=== PATIENT | female | born 1935 | race Asian ===

== ENCOUNTER 2018-12-19 07:05 | Inpatient (IN) | payer OTHER ==
--- NOTE | 2018-12-19 07:00 | EDPHY ---
H & P Time Seen by Provider: 12/19/18 07:05 Constitutional: Initial Vital Signs Temperature (C) 36.6 C 12/19/18 07:30 Heart Rate 84 12/19/18 07:30 Respiratory Rate 18 12/19/18 07:30 Blood Pressure 141/58 H 12/19/18 07:30 O2 Sat (%) 99 12/19/18 07:30 O2 Delivery Mode Room Air Allergies/Adverse Reactions: No Known Allergies Allergy (Unverified 12/19/18 07:39) Home Medications: Medication Instructions Recorded Glipizide 12/19/18 Medical Decision Making - Diagnostics Imaging Results: Imaging Impressions Head CT 12/19/18 07:12 Impression: 1. Possible acute/subacute ischemia left temporal lobe as described, MRI is recommended for further evaluation. Final results are concordant with initial interpretation. Preliminary report was communicated to the referring provider at 7:43 AM. AVI. Head CTA 12/19/18 07:12 Impression: 1. There is no hemodynamically significant ICA stenosis. 2. Patent vertebral arteries. CT ANGIOGRAPHY OF THE BRAIN: Study is limited by venous contamination. The major vessels of the hoh of [place] are well visualized, and there is no aneurysm, vascular malformation, flow-limiting stenosis, or acute occlusion identified. Calcified atherosclerotic plaque is seen in the internal carotid arteries without high-grade stenosis or occlusion. The distal cervical, petrous , cavernous, and supraclinoid portions of the internal carotid arteries are patent. Anterior and middle cerebral arteries are widely patent. Hypoplastic right A1 segment. With regards to the posterior circulation, the distal vertebral arteries are patent. The there is origin of the right CONDITIONING ROOM WORKER. The vertebrobasilar confluence and Posterior cerebral arteries are patent. Impression: Negative CT angiogram of the brain. With high clinical suspicion for acute ischemia, MRI is recommended for further evaluation. Please see separately dictated CT head for further findings. Final results are concordant with initial interpretation. Preliminary report was communicated to the referring provider at 7:51 AM. 1. Neck CTA 12/19/18 07:12 Impression: 1. There is no hemodynamically significant ICA stenosis. 2. Patent vertebral arteries. CT ANGIOGRAPHY OF THE BRAIN: Study is limited by venous contamination. The major vessels of the hoh of [place] are well visualized, and there is no aneurysm, vascular malformation, flow-limiting stenosis, or acute occlusion identified. Calcified atherosclerotic plaque is seen in the internal carotid arteries without high-grade stenosis or occlusion. The distal cervical, petrous , cavernous, and supraclinoid portions of the internal carotid arteries are patent. Anterior and middle cerebral arteries are widely patent. Hypoplastic right A1 segment. With regards to the posterior circulation, the distal vertebral arteries are patent. The there is origin of the right CONDITIONING ROOM WORKER. The vertebrobasilar confluence and Posterior cerebral arteries are patent. Impression: Negative CT angiogram of the brain. With high clinical suspicion for acute ischemia, MRI is recommended for further evaluation. Please see separately dictated CT head for further findings. Final results are concordant with initial interpretation. Preliminary report was communicated to the referring provider at 7:51 AM. 1. Imaging: Discussed imaging studies w/ call out operator Radiologist, I viewed and interpreted images myself ED Course/Re-evaluation: CHIEF COMPLAINT: Stroke alert HISTORY OF PRESENT ILLNESS: The patient is an 83 y/o female arriving via EMS as a stroke alert. Per EMS, the patient was last seen normal at 22:00, 9 hours ago. When the patient woke up this morning at 06:30, her noted that the patient was unable to speak , which is not normal. The patient was able to walk out to the ambulance. While en route to the emergency department she was hypertensive with a BP of 200/100 as well as a HR of 100 and BGL of 233. REVIEW OF SYSTEMS: Unable to obtain secondary to patient's mental status PHYSICAL EXAM: HR, BP, O2 Sat, RR. Temp noted General Appearance: Alert, well hydrated, appropriate, and non-toxic appearing. Head: Atraumatic without scalp tenderness or obvious injury Eyes: Pupils equal, round, reactive to light and accommodation, EOMI, no trauma , no injection. Ears: Clear bilaterally, no perforation, normal landmarks Nose: Atraumatic, no rhinorrhea, clear. Throat: There is no erythema or exudates, no lesions, normal tonsils, mucus membranes moist. Neck: Supple, 2+ carotid upstroke, nontender, no lymphadenopathy. Respiratory: No retractions, no distress, no wheezes, and no accessory muscle use. Lungs are clear to auscultation bilaterally. Cardiovascular: Regular rate and rhythm, no murmurs, rubs, or gallops. Bilateral carotid, radial, dorsalis pedis, and posterior tibial pulses intact. Good capillary refill all extremities. Gastrointestinal: Abdomen is soft, nontender, non-distended, no masses, no rebound, no guarding, no peritoneal signs. Musculoskeletal: Normal active ROM of all extremities, atraumatic. Neurological: Patient has Broca's aphasia and is not talking. The patient has non-focal cranial nerves, motor, sensory, and cerebellar exam. Skin: No rashes, good turgor, no nodules on palpation. Past medical history: Unknown Past surgical history: Unknown Family history: Unknown Social history: , lives in [place], retired DIAGNOSTICS/PROCEDURES/CRITICAL CARE TIME: EKG: The 12 lead EKG was interpreted by myself as sinus rhythm with a rate of 83 , minimal ST depression, prolonged QT interval. See hard copy and/or "tracemaster" electronic copy for interpretation. 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 Head CTA: No acute findings. Neck CTA: No acute findings. Brain MRI: Infarct in Broca's area. DIFFERENTIAL DIAGNOSIS: The differential diagnosis for the patient's altered mental status included but was not limited to Broca's area infarct, Broca's aphasia, hypoglycemia, infectious process, electrolyte abnormality, head injury, neurologic process, anemia, cardiac process, and intoxicants. MEDICAL DECISION MAKING: The patient is an 83 y/o female arriving via EMS as a stroke alert as she was unable to talk this morning. She was last seen normal at 22:00, 9 hours ago. She is able to walk without difficult. On exam the patient has no peripheral or cerebellar findings. She does have Broca's aphasia and is not talking at all. She is not a TPA candidate as she is out of the TPA time frame. I suspect she is having a large vessel occlusion. Labs, EKG, head CT, head and neck CTA ordered. Patient will be sent directly to CT. 0705: I met EMS upon arrival. 0730: I viewed patient's imaging findings, which have no acute findings. Radiologist reading still pending. 0731: Patient is back from CT; [facility] has been paged. 0732: I interpreted patient's EKG as sinus rhythm with a rate of 83, minimal ST depression, prolonged QT interval. 0734: I consulted with Dr. Garcia, neurologist, from [facility] regarding this patient. She agrees that unless there are findings on the CTA's there are no additional interventions to perform. 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 0747: I consulted with Dr. Garcia regarding patient's exam and head CT findings. Upon re-examination she is making more noises than before and is able to write words. If the patient's vessels are occluded, we will send her to [facility]. If there is no occlusion, the patient will be admitted here. Her BP is 141/58; 324mg PO Aspirin and 500cc Bolus of IV NS. Brain MRI ordered. 0743: I spoke with Dr. Mary, radiologist from [facility], regarding patient's CT and CTA findings. There are no acute findings besides the congenital anomaly. 0815: Patient had difficulty taking the Aspirin; she will need a swallow study. 0816: I consulted with the hospitalist service, Dr. Garcia accepts admission of this patient. The swallow study will be performed upon admission. 0827: I consulted with Dr. Villalta, neurologist, regarding patient and plan for admission. He agrees to follow this patient during her admission. 0949: I spoke with Dr. Mcgovern, radiologist, who reports that the patient has an infarct in Broca's area. Patient is safe to be transported to the floor. - Data Points Laboratory Results: Laboratory Results 12/19/18 07:06 12/19/18 07:06 12/19/18 12/19/18 12/19/18 07:17 07:14 07:06 WBC RBC Hgb POC Hgb 13.6 gm/dL gm/dL (12.6-16.3) Hct POC Hct 40 % % (38-47) MCV MCH MCHC RDW Plt Count MPV Neut % (Auto) Lymph % (Auto) Merrick % (Auto) Eos % (Auto) Baso % (Auto) Nucleat RBC Rel Count Absolute Neuts (auto) Absolute Lymphs (auto) Absolute Monos (auto) Absolute Eos (auto) Absolute Basos (auto) Absolute Nucleated RBC Immature Gran % Immature Gran # PT INR APTT POC Sodium 137 mEq/L mEq/L (135-145) Sodium 135 mEq/L mEq/L (135-145) POC Potassium 3.0 mEq/L L mEq/L (3.3-5.0) Potassium 3.1 mEq/L L mEq/L (3.5-5.2) POC Chloride 99 mEq/L mEq/L (97-110) Chloride 99 mEq/L mEq/L (97-110) Carbon Dioxide 23 mEq/l mEq/l (22-31) POC Total CO2 23 mEq/L mEq/L (22-31) Anion Gap 13 mEq/L mEq/L (6-14) POC BUN 12 mg/dL mg/dL (7-23) BUN 14 mg/dL mg/dL (7-23) Creatinine 0.6 mg/dL mg/dL (0.6-1.0) POC Creatinine 0.5 mg/dL L mg/dL (0.6-1.0) Estimated GFR > 60 Glucose 204 mg/dL H mg/dL (70-100) POC Glucose 214 mg/dL H mg/dL (70-100) Calcium 8.8 mg/dL mg/dL (8.5-10.4) POC Troponin I 0.00 ng/mL ng/mL (0.00-0.08) 12/19/18 12/19/18 07:06 07:06 WBC 6.50 10^3/uL 10^3/uL (3.80-9.50) RBC 4.81 10^6/uL 10^6/uL (4.18-5.33) Hgb 11.8 g/dL L g/dL (12.6-16.3) POC Hgb Hct 38.5 % % (38.0-47.0) POC Hct MCV 80.0 fL L fL (81.5-99.8) MCH 24.5 pg L pg (27.9-34.1) MCHC 30.6 g/dL L g/dL (32.4-36.7) RDW 17.5 % H % (11.5-15.2) Plt Count 296 10^3/uL 10^3/uL (150-400) MPV 8.8 fL fL (8.7-11.7) Neut % (Auto) 36.4 % L % (39.3-74.2) Lymph % (Auto) 50.9 % H % (15.0-45.0) Merrick % (Auto) 10.6 % % (4.5-13.0) Eos % (Auto) 1.4 % % (0.6-7.6) Baso % (Auto) 0.5 % % (0.3-1.7) Nucleat RBC Rel Count 0.0 % % (0.0-0.2) Absolute Neuts (auto) 2.37 10^3/uL 10^3/uL (1.70-6.50) Absolute Lymphs (auto) 3.31 10^3/uL H 10^3/uL (1.00-3.00) Absolute Monos (auto) 0.69 10^3/uL 10^3/uL (0.30-0.80) Absolute Eos (auto) 0.09 10^3/uL 10^3/uL (0.03-0.40) Absolute Basos (auto) 0.03 10^3/uL 10^3/uL (0.02-0.10) Absolute Nucleated RBC 0.00 10^3/uL 10^3/uL (0-0.01) Immature Gran % 0.2 % % (0.0-1.1) Immature Gran # 0.01 10^3/uL 10^3/uL (0.00-0.10) PT 11.7 SEC L SEC (12.0-15.0) INR 0.89 (0.83-1.16) APTT 27.1 SEC SEC (23.0-38.0) POC Sodium Sodium POC Potassium Potassium POC Chloride Chloride Carbon Dioxide POC Total CO2 Anion Gap POC BUN BUN Creatinine POC Creatinine Estimated GFR Glucose POC Glucose Calcium POC Troponin I Medications Given: Discontinued Medications Aspirin (Aspirin) 324 mg PO EDNOW ONE Stop: 12/19/18 07:51 Last Admin: 12/19/18 07:53 Dose: 324 mg Sodium Chloride (Ns) 1,000 mls @ 0 mls/hr IV EDNOW ONE; Wide Open PRN Reason: Protocol Stop: 12/19/18 07:50 Last Admin: 12/19/18 07:57 Dose: 1,000 mls Point of Care Test Results: Chemistry 12/19/18 12/19/18 07:17 07:14 POC Sodium 137 mEq/L mEq/L (135-145) POC Potassium 3.0 mEq/L L mEq/L (3.3-5.0) POC Chloride 99 mEq/L mEq/L (97-110) POC Total CO2 23 mEq/L mEq/L (22-31) POC BUN 12 mg/dL mg/dL (7-23) POC Creatinine 0.5 mg/dL L mg/dL (0.6-1.0) POC Glucose 214 mg/dL H mg/dL (70-100) POC Troponin I 0.00 ng/mL ng/mL (0.00-0.08) ISTAT H&H 12/19/18 07:14 POC Hgb 13.6 gm/dL gm/dL (12.6-16.3) POC Hct 40 % % (38-47) Departure - Departure Disposition: [facility] Inpatient Acute Clinical Impression: Acute ischemic stroke, Broca's aphasia, Broca's area infarct Condition: Fair Referrals: Patient,NotPresent [Unknown] - As per Instructions Report Scribed for: Trino Solares Report Scribed by: Lakesha Willingham Date of Report: 12/19/18 Time of Report: 06:58
[2018-12-19 07:30] LABS: PLATELET COUNT 296 10^3/uL (150-400)
[2018-12-19 07:41] LABS: INR 0.89 (0.83-1.16); PROTIME(PATIENT) 11.7 SEC (12.0-15.0)
[2018-12-19] MEDS ORDERED: NS 1,000 ML IV ONE (07:49)
[2018-12-19] MEDS ORDERED: ASPIRIN 81 MG CHEWABLE TAB PO ONE (07:50)
[2018-12-19] MEDS ORDERED: ASPIRIN 81 MG CHEWABLE TAB ONE (07:50)
[2018-12-19] MEDS ORDERED: ACETAMINOPHEN 650 MG SUPP PR PRN (09:39)
[2018-12-19] MEDS ORDERED: ONDANSETRON 4 MG/2 ML VIAL IVP PRN (09:39)
[2018-12-19] MEDS ORDERED: LABETALOL HCL 5 MG/ML 20 ML MDV IVP PRN (09:39)
[2018-12-19] MEDS ORDERED: PROTOCOL POTASSIUM 1 DOSE MISC PRN (09:42)
[2018-12-19] MEDS ORDERED: NS 1,000 ML IV SCH (09:45)
[2018-12-19] MEDS ORDERED: D50W 25 GM/50 ML SYR IVP PRN (12:14)
--- NOTE | 2018-12-19 12:14 | PDGENHP ---
History and Physical - Chief Complaint aphasia - History of Present Illness 83 yo female with h/o DM and htn presented to ED after awakening this am unable to speak. She was last seen normal last night around 10 pm. This morning, she could not speak and there was a right sided facial droop noted. EMS was called and she was brought to the ED where her symptoms persisted. CTA was negative for large vessel occlusion. MRI showed broca's area infarct. She has no h/o prior CVA and no h/o A fib. She is treated for hypertension and has well controlled diabetes. She denies CP, SOB, headache, vision changes or focal limb weakness. She has previously taken Aspirin 81 mg daily. She is admitted for further management of acute CVA. History Information - Allergies/Home Medication List Allergies/Adverse Reactions: No Known Allergies Allergy (Unverified 12/19/18 07:39) Home Medications: Pantoprazole Sodium [Protonix 40mg (*)] 40 mg PO DAILY 12/19/18 [Last Taken Unknown] glipiZIDE [Glucotrol] 10 mg PO BID 12/19/18 [Last Taken Unknown] I have personally reviewed and updated: family history, medical history, social history, surgical history - Past Medical History diabetes type 2, hypertension - Surgical History Reports: no pertinent surgical hx - Family History Positive for: non-pertinent - Social History Smoking Status: Never smoked Alcohol Use: None Drug Use: None Additional social history: Lives independently Review of Systems Review of Systems: ROS: 10pt was reviewed & negative except for what was stated in HPI & below Physical Exam Physical Exam: Temp Pulse Resp BP Pulse Ox 36.7 C 85 25 H 141/78 H 96 12/19/18 10:43 12/19/18 10:43 12/19/18 10:43 12/19/18 10:43 12/19/18 10:43 Constitutional: no apparent distress Eyes: PERRL Ears, Nose, Mouth, Throat: moist mucous membranes Cardiovascular: regular rate and rhythym Respiratory: no respiratory distress, clear to auscultation Gastrointestinal: normoactive bowel sounds, soft, non-tender abdomen Skin: warm Musculoskeletal: full muscle strength Neurologic: AAOx3, facial droop, other (aphasia) Psychiatric: interacting appropriately Lab Data & Imaging Review 12/19/18 07:06 12/19/18 07:06 WBC 6.50 10^3/uL (3.80-9.50) 12/19/18 07:06 RBC 4.81 10^6/uL (4.18-5.33) 12/19/18 07:06 Hgb 11.8 g/dL (12.6-16.3) L 12/19/18 07:06 POC Hgb 13.6 gm/dL (12.6-16.3) 12/19/18 07:14 Hct 38.5 % (38.0-47.0) 12/19/18 07:06 POC Hct 40 % (38-47) 12/19/18 07:14 MCV 80.0 fL (81.5-99.8) L 12/19/18 07:06 MCH 24.5 pg (27.9-34.1) L 12/19/18 07:06 MCHC 30.6 g/dL (32.4-36.7) L 12/19/18 07:06 RDW 17.5 % (11.5-15.2) H 12/19/18 07:06 Plt Count 296 10^3/uL (150-400) 12/19/18 07:06 MPV 8.8 fL (8.7-11.7) 12/19/18 07:06 Neut % (Auto) 36.4 % (39.3-74.2) L 12/19/18 07:06 Lymph % (Auto) 50.9 % (15.0-45.0) H 12/19/18 07:06 Walton % (Auto) 10.6 % (4.5-13.0) 12/19/18 07:06 Eos % (Auto) 1.4 % (0.6-7.6) 12/19/18 07:06 Baso % (Auto) 0.5 % (0.3-1.7) 12/19/18 07:06 Nucleat RBC Rel Count 0.0 % (0.0-0.2) 12/19/18 07:06 Absolute Neuts (auto) 2.37 10^3/uL (1.70-6.50) 12/19/18 07:06 Absolute Lymphs (auto) 3.31 10^3/uL (1.00-3.00) H 12/19/18 07:06 Absolute Monos (auto) 0.69 10^3/uL (0.30-0.80) 12/19/18 07:06 Absolute Eos (auto) 0.09 10^3/uL (0.03-0.40) 12/19/18 07:06 Absolute Basos (auto) 0.03 10^3/uL (0.02-0.10) 12/19/18 07:06 Absolute Nucleated RBC 0.00 10^3/uL (0-0.01) 12/19/18 07:06 Immature Gran % 0.2 % (0.0-1.1) 12/19/18 07:06 Immature Gran # 0.01 10^3/uL (0.00-0.10) 12/19/18 07:06 PT 11.7 SEC (12.0-15.0) L 12/19/18 07:06 INR 0.89 (0.83-1.16) 12/19/18 07:06 APTT 27.1 SEC (23.0-38.0) 12/19/18 07:06 POC Sodium 137 mEq/L (135-145) 12/19/18 07:14 Sodium 135 mEq/L (135-145) 12/19/18 07:06 POC Potassium 3.0 mEq/L (3.3-5.0) L 12/19/18 07:14 Potassium 3.1 mEq/L (3.5-5.2) L 12/19/18 07:06 POC Chloride 99 mEq/L (97-110) 12/19/18 07:14 Chloride 99 mEq/L (97-110) 12/19/18 07:06 Carbon Dioxide 23 mEq/l (22-31) 12/19/18 07:06 POC Total CO2 23 mEq/L (22-31) 12/19/18 07:14 Anion Gap 13 mEq/L (6-14) 12/19/18 07:06 POC BUN 12 mg/dL (7-23) 12/19/18 07:14 BUN 14 mg/dL (7-23) 12/19/18 07:06 Creatinine 0.6 mg/dL (0.6-1.0) 12/19/18 07:06 POC Creatinine 0.5 mg/dL (0.6-1.0) L 12/19/18 07:14 Estimated GFR > 60 12/19/18 07:06 Glucose 204 mg/dL (70-100) H 12/19/18 07:06 POC Glucose 214 mg/dL (70-100) H 12/19/18 07:14 Calcium 8.8 mg/dL (8.5-10.4) 12/19/18 07:06 POC Troponin I 0.00 ng/mL (0.00-0.08) 12/19/18 07:17 TSH 1.370 uIU/mL (0.465-4.680) 12/19/18 07:06 Visualized and Interpreted EKG results: Yes EKG Interpretation: Positive for: normal sinsus rhythm, ST depression Assessment & Plan Assessment: Acute ischemic stroke with Broca's aphasia - and right sided facial droop. MRI confirms Broca's area infarct. CTA head/neck neg for lg vessel occlusion. Currently normotensive. No h/o a fib. -admit for telemetry monitoring, neurochecks -increase ASA to 325 daily, add statin, check lipid panel in am -check echo -TSH, a1c -glycemic control -permissive htn, prn labetalol for SBP >220, DBP >120 -NPO for now pending speech eval, along with PT/OT -neurology to consult -if no a fib detected here, will discuss linq placement with cards prior to dc DM type 2 - hold glipizide, SSI for now Full code Dispo - admit to inpt, anticipate >48 hrs hospitalization for ongoing management of acute stroke and aphasia
[2018-12-19] MEDS: NS W/ 20 KCl/L 1,000 ML IV SCH (12:48)
--- NOTE | 2018-12-19 13:04 | NEUROPROG ---
Assessment: [id number] - Neurology Consult: - CC: - HPI: 12/19/18: Pt last seen normal at 10 pm on 12/18/18. Awoke at 6:30 am on 12/19/18 with expressive aphasia so brought to [facility] ER. Head CT showed no bleed and CTA head/neck showed no vessel occlusion or stenosis. Pt outside window for TPA. Pt started on aspirin (not on prior to event). Brain MRI showed left frontal cortical stroke. Neurologic exam showed expressive aphasia and right tongue deviation. Concern for embolic cause of stroke so will get cardiac eval. - PMHx: pt cannot answer due to aphasia - SHx: lives in [place] FHx: pt cannot answer due to aphasia - ROS: Pt denied acute fever, total vision loss, active severe chest pain, respiratory failure, total body severe rash, total bowel/bladder incontinence, psychosis, active seizures, or active bleeding - O: VS reviewed General: Alert Eyes: Fundoscopic exam not able to visualize optic disks CV: Heart RRR, no murmur, no carotid bruit Lungs: Clear to auscultation bilaterally, no rhonchi or rales Neuro: - Mental: pt has expressive aphasia and could not speak but was able to follow 1 -2 step commands, no further cognitive testing could be performed due to aphasia - Cranial Nerves: . II: PERRL, VFFTC . III/IV/: EOMI, no nystagmus, normal smooth pursuits, no Ptosis . V: facial sensation intact to LT . VII: face symmetric to eye closure and smile . VIII: hearing intact to conversation . IX/X: uvula raises symmetrically . XI: SCM 5/5 B/L strength . XII: tongue protrudes to right with testing - Motor: . Tone: normal tone in all 4 extremity . Strength: no pronator drift, strength 5/5 throughout (B/L delt, bic, tri, hand flame cutting machine operator helper, hf/he, df/pf) - Reflexes: B/L bic/BR/patella 2/4 - Sensory: all 4 extremity intact to light touch - Coord: DALTON wnl - Gait: deferred - Labs: 12/19/18- Na 137 - Rads: 12/19/18- Head CT wo: no acute bleed 12/19/18- Head/neck CTA: no significant stenosis or vessel abnl 12/19/18- Brain MRI wo: left frontal cortical stroke (I personally visualized the images on 12/19/18) - Assessment: 1. Left frontal cortical stroke causing expressive aphasia on 12/19/18: CTA head/ neck, telemetry unremarkable for cause. Given cortical location concern for emboli. Pt not on aspirin prior to stroke. - Plan: - TTE - 24 hour telemetry - If workup is negative then recommend 3 month LINQ monitor for any paroxysmal afib - Begin aspirin 325 mg qd for stroke prevention - Blood pressure goal < 220/120 x 48 hours then < 140/90 - LDL < 70 (lipid panel pending) - H1AC < 7.0 (H1AC pending) - PT/OT/Speech to determine rehab needs - F/U in neurology clinic 1-4 weeks after hospital discharge Objective: Vital Signs Temp Pulse Resp BP Pulse Ox 36.7 C 80 16 136/97 H 94 12/19/18 10:43 12/19/18 12:00 12/19/18 12:00 12/19/18 12:00 12/19/18 12:00 PT 11.7 SEC (12.0-15.0) L 12/19/18 07:06 INR 0.89 (0.83-1.16) 12/19/18 07:06 Allergies/Adverse Reactions: No Known Allergies Allergy (Unverified 12/19/18 07:39)
--- NOTE | 2018-12-19 14:08 | PDMN ---
Medical Necessity Medical necessity: Pt meets inpt criteria per MD order and [facility] M-83, Stroke: Ischemic, 2 days. 83 y/o w/acute ischemic stroke w/Broca's aphasia and R sided facial droop. Broca's area infarct confirmed w/MRI. Neuro consult, PT/OT/SP evals pending, tele, ECHO pending, anticipate>2MN for ongoing management of above.
--- NOTE | 2018-12-19 14:46 | CPEKG ---
Test Reason : OPEN Blood Pressure : / mmHG Vent. Rate : 083 BPM Atrial Rate : 083 BPM P-R Int : 166 ms QRS Dur : 078 ms QT Int : 441 ms P-R-T Axes : 063 006 034 degrees QTc Int : 519 ms Sinus rhythm Minimal ST depression, anterolateral leads Prolonged QT interval Confirmed by Trino Solares ([id number]) on 12/19/2018 2:46:27 PM Referred By: Trino Solares Confirmed By:Trino Solares
--- NOTE | 2018-12-19 15:06 | ECHO ---
[email or web address] [address] [address] Main: [phone] Echocardiography Examination Transthoracic Name: MEGAN ADAMS MR#: [id number] Study Date: 12/19/2018 Study Time: 01:54 PM Date of : 1935 Age: 83 year(s) Height: 147.3 cm (58 in.) Weight: 35.38 kg (78 lb.) BSA: 1.22 m2 Gender: Female Examination: Echo with Agitated Saline Contrast: Image Quality: Good Rhythm: Normal sinus rhythm Heart Rate: 77 bpm BP: 133 mmHg/76 mmHg Indication: Ischemic Stroke Procedure Staff Referring Physician: Senior Media Director: David Galindo RDCS Reading Physician: Joni Mays MD Requesting Provider: Indication: Ischemic Stroke Measurements Chambers AV/MV Label Value Normal Value Label Value Normal Value EF lower range (%) 75 % AV PGmax 8 mmHg EF upper range (%) 80 % AV PGmean 4 mmHg IVSd, 2D 0.8 cm (0.6cm - 1.1cm) AV Vmax 1.43 m/s LVDd, 2D 4.1 cm (3.9cm - 5.3cm) MADDY (continuity eq. 1.7 cm2 LVDs, 2D 2.3 cm (2.1cm - 4cm) Vmax) LVEF, 2D 75 % (54% - 74%) MADDY D (continuity eq. 1.6 cm2 LVOT PGmax 3 mmHg VTI) LVOT PGmean 2 mmHg MV A Vmax 1.03 m/s LVOT Vmax 0.93 m/s (0.7m/s - 1.1m/s) MV E' lateral 0.05 m/s LVOT Vmean 0.58 m/s MV E' mean 0.04 m/s LVOTd 1.8 cm (1.8cm - 2cm) MV E' septal 0.03 m/s LVPWd, 2D 0.9 cm MV E Vmax 0.52 m/s TAPSE 2 cm MV E/A 0.5 LA Area, A2C 15.8 cm2 (0cm2 - 20cm2) MV E/E' lateral 10.2 LA Volume, A2C 44 ml (22ml - 52ml) MV E/E' mean 13 LA Volume, A4C 31 ml (22ml - 52ml) MV E/E' septal 15.6 (0.45 - 1.25) LA Volume, BP 38 ml (22ml - 52ml) TV/PV LAESV index, MOD4 25.4 ml/m2 Label Value Normal Value RA Area 10.4 cm2 RA Pressure 5 mmHg Additional Vessels RVSP 49 mmHg Patient: MEGAN ADAMS Study Date: 12/19/2018 Page 1 of 3 01:54 PM Label Value Normal Value TR Pmax 44 mmHg AoRoot, MM 2.8 cm (2.2cm - 3.7cm) TR Vmax 3.3 m/s PV PGmax 4 mmHg PV Vmax, Caliper 0.96 m/s (0.6m/s - 0.9m/s) Conclusions Left Ventricle: EF range is estimated at 75 % - 80 %. IAS: An agitated saline study was performed and was positive for intracardiac shunting. Mitral Valve: Trivial mitral regurgitation. Tricuspid Valve: Mild to moderate tricuspid regurgitation. Findings Left Ventricle: Left ventricle is normal in size. The ejection fraction, measured by 2D, is 75 %. EF range is estimated at 75 % - 80 %. Left ventricle wall thickness is normal. There are no regional wall motion abnormalities. Cannot determine LAP and Diastolic Dysfunction Grade. Right Ventricle: Normal size right ventricle. The RV function appears grossly normal. Left Atrium: The left atrium is normal in size. IAS: An agitated saline study was performed and was positive for intracardiac shunting. Right Atrium Measurements RA Area is 10.4 cm2. Mitral Valve: Mitral valve appears structurally normal. Trivial mitral regurgitation. No mitral valve stenosis. Aortic Valve: No aortic valve regurgitation. There is no aortic stenosis. The aortic valve is trileaflet. Tricuspid Valve: Mild to moderate tricuspid regurgitation. Right Ventricular systolic pressure is measured at 49 mmHg. Pulmonary artery pressure is mildly increased. Pulmonic Valve: Pulmonic leaflets are structurally normal. No pulmonic valve regurgitation is evident. Aorta: The aorta is normal. The aortic root size in M-mode measures 2.8 cm. Aorta Measurements AoRoot, MM is 2.8 cm. Pericardium: No pericardial effusion. Exam Details Procedure Ordered: Echo with Agitated Saline Procedure Status: Routine study Image Quality: Good Patient: MEGAN ADAMS Study Date: 12/19/2018 Page 2 of 3 01:54 PM Facility Location: Cardiac Echo 1 (No Signature Object) Patient: MEGAN ADAMS Study Date: 12/19/2018 Page 3 of 3 01:54 PM [id number]
[2018-12-19] MEDS ORDERED: ATORVASTATIN CALCIUM 40 MG TAB PO SCH (17:45)
[2018-12-19] MEDS: INSULIN LISPRO 100 UNIT/ML SC SCH (19:18)
[2018-12-20] MEDS: NS W/ 20 KCl/L 1,000 ML IV SCH (02:17)
[2018-12-20] MEDS: INSULIN LISPRO 100 UNIT/ML SC SCH ×3 (07:34→17:39)
[2018-12-20] MEDS: ENOXAPARIN 40 MG/0.4 ML SYR SC SCH ×2 (08:15→09:18)
[2018-12-20] MEDS: ATORVASTATIN CALCIUM 20 MG TAB PO SCH (08:15)
--- NOTE | 2018-12-20 08:43 | HOSPPROG ---
Hospitalist Progress Note Assessment/Plan: Acute ischemic stroke with Broca's aphasia - right sided facial droop and aphasia persist. MRI confirms Broca's area infarct. CTA head/neck neg for lg vessel occlusion. Currently normotensive. No e/o a fib on telemetry (pers reviewed/interp). Echo with +intracardiac shunt. -cont telemetry monitoring -change ASA to Plavix (had event on ASA 81 mg) -cont statin (LDL 45) -glycemic control -permissive htn, prn labetalol for SBP >220, DBP >120 though pt remains normotensive -cont speech, PT/OT -neurology consult appreciated, discussed with Dr. Villalta -no indication for KRISTYN to further evaluate for PFO given her age, not candidate for closure -if no a fib detected here, will plan for linq placement with cards prior to dc, possibly tomorrow DM type 2 - a1c 9 on max dose glipizide, unclear why she is not on MTF -hold glipizide, cont SSI for now -will discuss addition of MTF at discharge (defer for now given recent conrast) +/- addition of insulin GERD - PPI Full code Dispo - cont inpt, will likely dc to inpt rehab, consult placed Subjective: PT feels well. Ambulated in halls without assistance. Still some aphasia, but was able to say water this am. Still some facial droop on the right. Eating/drinking ok. Objective: Vital Signs Temp Pulse Resp BP Pulse Ox 36.4 C 74 20 127/73 H 93 12/20/18 07:19 12/20/18 07:19 12/20/18 07:19 12/20/18 07:19 12/20/18 07:19 Laboratory Results 12/20/18 05:15 12/19/18 12/20/18 12/21/18 05:59 05:59 05:59 Intake Total 2309 Balance 2309 PT 11.7 SEC (12.0-15.0) L 12/19/18 07:06 INR 0.89 (0.83-1.16) 12/19/18 07:06 - Physical Exam Constitutional: no apparent distress Eyes: PERRL Ears, Nose, Mouth, Throat: moist mucous membranes Cardiovascular: regular rate and rhythym Respiratory: no respiratory distress, clear to auscultation Gastrointestinal: normoactive bowel sounds, soft, non-tender abdomen Skin: warm Musculoskeletal: full muscle strength Neurologic: AAOx3, facial droop, other (aphasia) Psychiatric: interacting appropriately ICD10 Worksheet Patient Problems: Problems Problem Status Onset Acute ischemic stroke Acute Broca's aphasia Acute
[2018-12-20] MEDS ORDERED: ASPIRIN 325 MG TAB PO SCH (09:00)
--- NOTE | 2018-12-20 09:11 | NEUROPROG ---
Assessment: [id number] - Neurology Consult: - CC: F/U for stroke - Narrative Summary: 12/19/18: Pt last seen normal at 10 pm on 12/18/18. Awoke at 6:30 am on 12/19/18 with expressive aphasia so brought to [facility] ER. Head CT showed no bleed and CTA head/neck showed no vessel occlusion or stenosis. Pt outside window for TPA. Pt on aspirin prior to stroke. Brain MRI showed left frontal cortical stroke. Neurologic exam showed expressive aphasia and right tongue deviation. - HPI: F/U 12/20/18. LDL 45L but H1AC elevated at 9.1. TTE and telemetry show no clear cause of stroke. Given elevated H1AC I suspect this is the likely cause of stroke. Pt was on aspirin prior to stroke so I would recommend changing aspirin to plavix (aspirin failure). Recommend pt get LINQ monitor by cardiology to assess for paroxysmal afib. - PMHx: pt cannot answer due to aphasia - SHx: lives in [place] FHx: pt cannot answer due to aphasia - ROS: Pt denied acute fever, total vision loss, active severe chest pain, respiratory failure, total body severe rash, total bowel/bladder incontinence, psychosis, active seizures, or active bleeding - Labs: 12/19/18- LDL 45L, H1AC 9.1H - Rads: 12/19/18- Head CT wo: no acute bleed 12/19/18- Head/neck CTA: no significant stenosis or vessel abnl 12/19/18- Brain MRI wo: left frontal cortical stroke 12/19/18- TTE: no cardiac thrombus noted, PFO noted but unlikely cause of stroke 12/19/18- Telemetry: no afib noted - Assessment: 1. Left frontal cortical stroke causing expressive aphasia on 12/19/18: LDL 45L but H1AC 9.1 so likely cause of stroke. CTA head/neck, telemetry, TTE unremarkable for cause. Given cortical location concern for emboli. Pt on aspirin prior to stroke so will change to plavix. I will also recommend LINQ monitor. - Plan: - recommend LINQ monitor for any paroxysmal afib - Change aspirin to plavix 75 mg qd (stroke on 12/19/18 occurred on aspirin) for stroke prevention - Blood pressure goal < 220/120 x 24 hours then < 140/90 - LDL < 70 (45) - H1AC < 7.0 (9.1) - PT/OT/Speech to determine rehab needs - F/U in neurology clinic 1-4 weeks after hospital discharge - No further inpt w/u needed, neurology will sign off Objective: Vital Signs Temp Pulse Resp BP Pulse Ox 36.4 C 74 20 127/73 H 93 12/20/18 07:19 12/20/18 07:19 12/20/18 07:19 12/20/18 07:19 12/20/18 07:19 Laboratory Results 12/20/18 05:15 12/19/18 12/20/18 12/21/18 05:59 05:59 05:59 Intake Total 2309 Balance 2309 PT 11.7 SEC (12.0-15.0) L 12/19/18 07:06 INR 0.89 (0.83-1.16) 12/19/18 07:06 Allergies/Adverse Reactions: No Known Allergies Allergy (Unverified 12/19/18 07:39)
[2018-12-20] MEDS ORDERED: LIDOCAINE 1% 300 MG/30 ML SDV SC ONE (10:12)
[2018-12-20] MEDS: PANTOPRAZOLE SODIUM 40 MG TAB PO SCH (10:34)
--- NOTE | 2018-12-20 10:42 | PDHPUP ---
History & Physical Update H&P update statement: This history and physical update is based on an assessment of the patient which was completed after admission or registration (within 24 hours), but prior to the surgery/procedure. H&P update: H&P reviewed & patient examined, no change in patient's condition since H&P completed
--- NOTE | 2018-12-20 10:56 | PDCTREPORT ---
Cardiothoracic Procedure Rpt Cardiothoracic Procedure Report: Loop recorder insertion Indications cryptogenic stroke Patient brought to the CV in the fasting state. Left ayala pectoral region was sterilely prepped and draped. Small site was locally anesthetized with 2% xylocaine. Stab wound was made. Using the insertion tool a [employer] loop recorder was inserted under the skin. 2 jeff were used to close the incision. Conclusions successful implantation of a LINQ loop recorder. Patient Problems: Problems Problem Status Onset Acute ischemic stroke Acute Broca's aphasia Acute
--- NOTE | 2018-12-20 11:49 | ASMTCMCOM ---
CM Note CM Note Notes: CM met with pt, her and daughter. Family is advocating for pt to go to inpt rehab. CM initiated referral to [facility] for approval for rehab. CM provided education on SNF if [facility] does not approve inpt rehab. CM to follow. Plan: Inpatient rehab pending [place] approval. Date Signed: 12/20/2018 11:49 AM Electronically Signed By:JADE Yo
[2018-12-20] MEDS ORDERED: INSULIN GLARGINE 100 UNITS/ML UNIT SC SCH (21:00)
[2018-12-21] MEDS ORDERED: POTASSIUM CL 10 MEQ TAB PO ONE (07:59)
[2018-12-21] MEDS: ATORVASTATIN CALCIUM 20 MG TAB PO SCH (08:27)
[2018-12-21] MEDS: ENOXAPARIN 40 MG/0.4 ML SYR SC SCH (08:28)
[2018-12-21] MEDS: PANTOPRAZOLE SODIUM 40 MG TAB PO SCH (08:28)
[2018-12-21] MEDS: INSULIN LISPRO 100 UNIT/ML SC SCH ×2 (08:29→12:38)
[2018-12-21] MEDS ORDERED: CLOPIDOGREL BISULFATE 75 MG TAB PO SCH (09:00)
[2018-12-21 11:28] VITALS: BP 111/66
--- NOTE | 2018-12-21 14:05 | GDS ---
[f rep st] DISCHARGE SUMMARY ALL DIAGNOSES: 1. Acute ischemic stroke. 2. Aphasia. 3. Diabetes mellitus type 2 with an A1c of 9. 4. Gastroesophageal reflux disease. HOSPITAL COURSE: This is an 83-year-old female, who woke up with aphasia. MRI confirmed an acute is chemic stroke in Broca area. Workup for secondary causes of stroke was negative including CT angiogr am of her head and neck, echocardiogram, and telemetry monitoring. She did have a LINQ monitor place d by Cardiology on the day prior to discharge. Her LDL was checked 45. Thus, she was not started on a statin. She should follow up with her primary care physician for ongoing management. Neurology r ecommended changing her to Plavix from aspirin given that this occurred while she was on aspirin. Sh dania has been given a prescription for this. She will need to have tight followup for her A1c of 9 by her primary care physician. She is currentl y on glipizide, unclear why she is not on additional medicines, but these would be warranted, especia lly given her stroke. FOLLOWUP: 1. Primary care physician for ongoing management of her diabetes. 2. Outpatient Cardiology for followup of cardiac monitoring on her LINQ monitor. 3. Neurology for ongoing management of her stroke. 4. Primary care physician for consideration of addition of a statin, although LDL is very low. DISPOSITION: She is discharged home in stable condition. She will have outpatient followup set up p sukhwinder Bagley. BILLING: I spent more than 30 minutes on the day of discharge coordinating care. /[id number]/MODL
--- NOTE | 2018-12-21 15:27 | ASMTLACE ---
LACE Length of stay for Answers: 2 days current admission Acuity / Level of Answers: Yes Care: Did the patient have an inpatient admission? Comorbidities - select Answers: Cerebrovascular disease all that apply (CVA, TIA, aneurysms, vasc ular dementia) Diabetes (uncontrolled or controlled) # of Emergency department Answers: 1-2 visits in the last 6 months Score: 8 Date Signed: 12/21/2018 03:27 PM Electronically Signed By:VICKI Laura
--- NOTE | 2018-12-21 15:41 | ASMTCMCOM ---
CM Note CM Note Notes: Pt medically stable for d/c home with husb/dghtr supervision and intensive outpatient at [facility]. 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 [facility] declined pt for SNF and inpatient rehab, approving pt for intensive outpatient at [facility]. Pt dghtr Karen talked to Roseanen Bagley prior to d/c and feels comfortable with the [facility] recommendation. Pt will get three hours of therapy a day, three times a week at [facility]. Karen and pt spouse feel comfortable getting pt to [facility] three times a week and will follow up with [facility] if they change their mind. Karen will stay with pt and at d/c for supervision. Date Signed: 12/21/2018 03:41 PM Electronically Signed By:VICKI Laura
--- NOTE | 2018-12-21 15:42 | ASDISCHSUM ---
Discharge Information Plan Status:Home with No Needs Medically Cleared to Leave: Discharge Date:12/21/2018 03:25 PM CM D/C Disposition: ADT D/C Disposition:Home, Routine, Self-Care Projected Discharge Date:12/21/2018 11:00 AM Transportation at D/C: Discharge Delay Reason: Follow-Up Date:12/21/2018 11:00 AM Discharge Slot: Final Diagnosis: Placement Information Referral Type:[facility] [employer] [facility] Referral ID:[id number] Provider Name: Address 1: Phone Number: Address 2: Fax Number: City: Selection Factors: State: Referral Type:*Home Health Care Services Referral ID:[id number] Provider Name: Address 1: Phone Number: Address 2: Fax Number: City: Selection Factors: State: Patient Contact Information Contact Name:ROMEO Relationship: Address:[address] Work Phone: City:[facility] Phone: [facility]/Zip Code:[place] [address] Email: Financial Information Financial Class:Medicare Advantage Plans Primary Plan Desc:[employer] MED[employer]ARE ADV IP Primary Plan Number:[id number] Secondary Plan Desc: Secondary Plan Number: Assessment Information LACE LACE Length of stay for Answers: 2 days current admission Acuity / Level of Answers: Yes Care: Did the patient have an inpatient admission? Comorbidities - select Answers: Cerebrovascular disease all that apply (CVA, TIA, aneurysms, vasc ular dementia) Diabetes (uncontrolled or controlled) # of Emergency department Answers: 1-2 visits in the last 6 months Score: 8 Date Signed: 12/21/2018 03:27 PM Electronically Signed By:VICKI Laura [facility] CM Progress Note CM Note CM Note Notes: CM met with pt, her and daughter. Family is advocating for pt to go to inpt rehab. CM initiated referral to [facility] for approval for rehab. CM provided education on SNF if [facility] does not approve inpt rehab. CM to follow. Plan: Inpatient rehab pending [facility] [place] approval. Date Signed: 12/20/2018 11:49 AM Electronically Signed By:JADE Yo [facility] CM Progress Note CM Note CM Note Notes: Pt medically stable for d/c home with husb/dghtr supervision and intensive outpatient at [facility]. 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 [facility] declined pt for SNF and inpatient rehab, approving pt for intensive outpatient at [facility]. Pt gavin Jones talked to Roseanne [facility] prior to d/c and feels comfortable with the [facility] recommendation. Pt will get three hours of therapy a day, three times a week at [facility]. Karen and pt spouse feel comfortable getting pt to [place] three times a week and will follow up with [facility] if they change their mind. Karen will stay with pt and at d/c for supervision. Date Signed: 12/21/2018 03:41 PM Electronically Signed By:VICKI Laura Intervention Information Intervention Type:*Incorrect Registration Date of Service:12/19/2018 01:59 PM Patient Type:Observation Staff Member:KEARA Hickey, Morena Hours: Discipline: Severity: Comment:
== END 2018-12-21 15:25 | disposition home or self-care (01) | DRG 66 ==
LOC: EDUNIT# → OBSVTOIN 09:42 → F2N 10:32 → F3N 12-20 15:17
PROVIDERS: ADMIT Hospitalist; ATTEND Hospitalist
PROC: 0JH60PZ Insertion of Cardiac Rhythm Related Device into Chest Subcutaneous Tissue and Fascia, Open Approach (ICD-10-PCS; principal; 2018-12-20)
DX: I63.9 Cerebral infarction, unspecified (principal); R29.705 NIHSS score 5; E86.9 Volume depletion, unspecified; R47.01 Aphasia; E11.9 Type 2 diabetes mellitus without complications; K21.9 Gastro-esophageal reflux disease without esophagitis
CPT/HCPCS: 70551-PN; 82435-PO; 82565-PO; 82947-PO; 84132-PO; 84295-PO; 84484-ER; 84520-PO; 85014-ER; 92507-GN; 92523-GN; 92526-GN; 92610-GN; 97161-GP; 97165-GO; 97530-GO; 97535-GO; C1764; J1650; J1815